=== PATIENT | female | born 1940 | race Caucasian/White ===

== ENCOUNTER 2017-05-06 06:33 | Inpatient (IN) | payer OTHER ==
[2017-05-06 06:41] VITALS: RESP 16
--- NOTE | 2017-05-06 07:03 | EDPHY ---
H & P Stated Complaint: Recent fall, difficulty managing symptoms at home Time Seen by Provider: 05/06/17 06:51 HPI/ROS: CHIEF COMPLAINT: Mechanical fall on Monday, multiple injuries, difficulty managing at home HISTORY OF PRESENT ILLNESS: The patient presents to the ED after reportedly had a mechanical fall on Monday. She was diagnosed with a sugar in her back, acute knee strain and a left foot fracture. She has been unable to ambulate safely with the cast boot she was given. The patient was also given a prescription for Toradol. She reports this given her terrible nightmares. She has been unable to sleep. While her daughter does live at the house where she works during the day and is unable to safely care for her mother during those times. REVIEW OF SYSTEMS: A comprehensive 10 point review of systems is otherwise negative aside from elements mentioned in the history of present illness. Source: Patient Exam Limitations: No limitations - Personal History Current Tetanus/Diphtheria Vaccine: Yes Current Tetanus Diphtheria and Acellular Pertussis (TDAP): Yes Tetanus Vaccine Date: 2009 - Medical/Surgical History Hx Asthma: No Hx Chronic Respiratory Disease: No Hx Diabetes: No Hx Cardiac Disease: Yes Hx Renal Disease: No Hx Cirrhosis: No Hx Alcoholism: No Hx HIV/AIDS: No Hx Splenectomy or Spleen Trauma: No Other PMH: A- FIB, PACEMAKER, CHF, TURNERS SYNDROM - Social History Smoking Status: Former smoker - Physical Exam Exam: General Appearance: Elderly female, no acute distress Head: Atraumatic Eyes: Pupils equal, round, reactive ENT, Mouth: No hemotympanum, no oral trauma Neck: Nontender, trachea midline Respiratory: Mild tenderness to palpation left anterior chest wall, no subcutaneous emphysema Cardiovascular: Regular rate and rhythm Abdomen: Abdomen is soft and nontender, pelvis stable Skin: No lacerations, No abrasion Back: Tenderness to palpation lower lumbar spine Extremities: Tenderness to palpation lateral at night, decreased range of motion right knee Neurological: GCS 15, 5/5 strength all 4 extremities Constitutional: Initial Vital Signs Temperature (C) 36.8 C 05/06/17 06:37 Heart Rate 84 05/06/17 06:37 Respiratory Rate 16 05/06/17 06:37 Blood Pressure 100/74 05/06/17 06:37 O2 Sat (%) 96 05/06/17 06:37 O2 Delivery Mode Room Air O2 (L/minute) 2 Allergies/Adverse Reactions: Sulfa (Sulfonamide Antibiotics) Allergy (Intermediate, Verified 05/06/17 06:42) Hives trimethoprim [Trimethoprim] Allergy (Intermediate, Verified 05/06/17 06:42) Hives Home Medications: Medication Instructions Recorded Aspirin [Aspirin 81mg (*)] 81 mg PO DAILY 12/26/13 Cholecalciferol Vit D3 [Vitamin D3 4,000 units PO DAILY 12/26/13 (*)] Escitalopram Oxalate [Lexapro 10 10 mg PO HS 12/26/13 MG] Sotalol HCl [Sotalol] 180 mg PO BID 12/26/13 Bimatoprost 0.01% [Lumigan 0.01% 1 drops EACHEYE HS 11/11/14 (*)] Herbals/Supplements -Info Only 1 ea PO DAILY 11/11/14 Meclizine HCl [Meclizine HCl 25 mg 25 mg PO DAILY PRN 11/11/14 (RX,OTC)] Ibuprofen [Motrin (*)] 600 mg PO Q6 PRN #0 tab 11/27/14 Furosemide [Lasix 20 MG (*)] 20 mg PO 05/06/17 Home O2 2 05/06/17 Tramadol HCl 50 mg PO 05/06/17 Warfarin Sodium 4 mg PO 05/06/17 Medical Decision Making - Diagnostics EKG Interpretation: EKG: Complete interpretation has been separately recorded in the [facility] archive. Summary impression: Atrial fibrillation with chronic conduction changes ED Course/Re-evaluation: The patient presents to the ED with increasing inability to care for herself in the setting of recent orthopedic injuries. The patient has a history of arrhythmia. 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 Patient has no complaints of an acute headache or neck pain in the emergency department. The patient does have tenderness in the area she reports she was diagnosed with injuries on Monday. Patient was noted to be hemodynamically stable in the emergency department. Patient will require admission to the hospital for likely placement into a rehab facility. Consultation is made with the hospitalist service. She will be a by Dr. Butch Roldan. I did review the [facility] EHR and reviewed the following which reports from [facility] earlier this week. Chest x-ray PA lateral: Negative for pneumothorax or rib fracture Four view right knee series: Negative for acute fracture Left foot x-ray: Nondisplaced 5th metatarsal fracture Rib x-ray series: Negative for acute fracture I see no record of lumbar plain film being ordered and have ordered one. Differential Diagnosis: Differential diagnosis considered includes fracture, sprain dislocation, metabolic abnormality, arrhythmia - Data Points Laboratory Results: Laboratory Results 05/06/17 07:30 05/06/17 07:30 05/06/17 05/06/17 07:30 07:30 WBC 8.30 10^3/uL 10^3/uL (3.80-9.50) RBC 3.54 10^6/uL L 10^6/uL (4.18-5.33) Hgb 9.6 g/dL L g/dL (12.6-16.3) Hct 30.6 % L % (38.0-47.0) MCV 86.4 fL fL (81.5-99.8) MCH 27.1 pg L pg (27.9-34.1) MCHC 31.4 g/dL L g/dL (32.4-36.7) RDW 19.7 % H % (11.5-15.2) Plt Count 265 10^3/uL 10^3/uL (150-400) MPV 12.1 fL H fL (8.7-11.7) Neut % (Auto) 38.1 % L % (39.3-74.2) Lymph % (Auto) 57.0 % H % (15.0-45.0) [place] % (Auto) 3.4 % L % (4.5-13.0) Eos % (Auto) 0.7 % % (0.6-7.6) Baso % (Auto) 0.6 % % (0.3-1.7) Nucleat RBC Rel Count 0.0 % % (0.0-0.2) Absolute Neuts (auto) 3.16 10^3/uL 10^3/uL (1.70-6.50) Absolute Lymphs (auto) 4.73 10^3/uL H 10^3/uL (1.00-3.00) Absolute Monos (auto) 0.28 10^3/uL L 10^3/uL (0.30-0.80) Absolute Eos (auto) 0.06 10^3/uL 10^3/uL (0.03-0.40) Absolute Basos (auto) 0.05 10^3/uL 10^3/uL (0.02-0.10) Absolute Nucleated RBC 0.00 10^3/uL 10^3/uL (0-0.01) Immature Gran % 0.2 % % (0.0-1.1) Seg Neutrophils % 46 % % Band Neutrophils % 3 % % Lymphocytes % 50 % % Eosinophils % 1 % % Immature Gran # 0.02 10^3/uL 10^3/uL (0.00-0.10) Absolute Seg Neuts 3.82 10^/uL 10^/uL (1.70-6.50) Absolute Band Neuts 0.25 10^3/uL 10^3/uL (0.00-0.70) Absolute Lymphocytes 4.15 10^3/uL H 10^3/uL (1.00-3.00) Absolute Eosinophils 0.08 10^3/uL 10^3/uL (0.03-0.40) Differential Comment COMM Smudge Cells 2+ H Platelet Estimate ADEQUATE (ADEQ) Echinocytes 1+ H Elliptocytes 2+ H Acanthocytes (Spur) 1+ H Smear Review By Pending Sodium 144 mEq/L mEq/L (135-145) Potassium 4.2 mEq/L mEq/L (3.5-5.2) Chloride 103 mEq/L mEq/L (97-110) Carbon Dioxide 33 mEq/l H mEq/l (22-31) Anion Gap 8 mEq/L mEq/L (8-16) BUN 22 mg/dL mg/dL (7-23) Creatinine 0.5 mg/dL L mg/dL (0.6-1.0) Estimated GFR > 60 Glucose 88 mg/dL mg/dL (70-100) Calcium 9.0 mg/dL mg/dL (8.5-10.4) Departure - Departure Disposition: [facility] Inpatient Acute Clinical Impression: Atrial fibrillation Qualifiers: Atrial fibrillation type: chronic Qualified Code(s): I48.2 - Chronic atrial fibrillation Knee strain Qualifiers: Encounter type: initial encounter Laterality: right Qualified Code(s): S86.911A - Strain of unspecified muscle(s) and tendon(s) at lower leg level, right leg, initial encounter Metatarsal fracture Qualifiers: Encounter type: initial encounter Metatarsal bone: fifth Fracture type: closed Fracture alignment: nondisplaced Laterality: left Qualified Code(s): S92.355A - Nondisplaced fracture of fifth metatarsal bone, left foot, initial encounter for closed fracture Condition: Good
--- NOTE | 2017-05-06 07:27 | CPEKG ---
Heart Rate: 95 RR Interval: 632 QRSD Interval: 108 QT Interval: 420 QTC Interval: 528 QRS [place]: 103 T Wave [place]: 101 EKG Severity - ABNORMAL ECG - EKG Impression: A-FLUTTER W/ PREDOM 3:1 AV BLOCK, A-RATE 263 EKG Impression: VENTRICULAR PREMATURE COMPLEX EKG Impression: IRBBB AND LPFB Electronically Signed By: Heron Mars 06-May-2017 08:33:38
[2017-05-06 07:38] LABS: PLATELET COUNT 265 10^3/uL (150-400)
[2017-05-06] MEDS ORDERED: FUROSEMIDE 20 MG TAB PO PRN (12:06)
[2017-05-06] MEDS ORDERED: ACETAMINOPHEN 325 MG TAB PO PRN (12:16)
[2017-05-06] MEDS ORDERED: ONDANSETRON DISINTEGRATING 4 MG TAB PO PRN (12:16)
[2017-05-06] MEDS ORDERED: ONDANSETRON 4 MG/2 ML VIAL IVP PRN (12:16)
--- NOTE | 2017-05-06 12:56 | GHP ---
[f rep st] HISTORY AND PHYSICAL DATE OF ADMISSION: 05/06/2017 HISTORY OF PRESENT ILLNESS: The patient is a pleasant 77-year-old female with history of poor balanc e, Louise syndrome, atrial fibrillation, on chronic warfarin therapy who presents several days after a fall. She had a mechanical fall on Monday where she tripped on a curb. She landed on her foot and side breaking a rib. She also broke a bone in her foot, although I do not have the films to review. She was given a hard walking cast and tramadol for pain relief, and has done poorly a week. She is having nightmares from the pain from the tramadol and she is functionally doing poorly at home. She lives with her daughter who is available, but during the day, the daughter works. The patient has been largely confined to bed. She has not had fever. She has not had chills. She h as not had cough. No nausea, vomiting, diarrhea. We spent a moment discussing the risks and benefits of a patient who takes Coumadin and falls. It so unds like she has been on Coumadin for 20 years with no major bleeding episodes and does have somewha t recurrent falls. Her maintenance fitter is Dr. Huffman. REVIEW OF SYSTEMS: Complete 10-point review of systems conducted and is negative as noted in the HPI . PAST MEDICAL HISTORY: 1. Osteoporosis. 2. Atrial fibrillation, on sotalol on warfarin. 3. Falls. 4. Fractures. 5. History of cystocele. 6. Depression. 7. Louise syndrome. ALLERGIES: Sulfa. HOME MEDICATIONS: Tramadol, aspirin, atorvastatin, Lumigan eyedrops, vitamin D3, escitalopram, Lasix , sotalol, warfarin. SOCIAL HISTORY: Lives with her daughter. No tobacco. No alcohol. FAMILY HISTORY: Daughter is alive and healthy. PHYSICAL EXAMINATION: VITAL SIGNS: Temp 36.6 blood pressure 105/46, pulse 87, breathing 16 times a minute, 95% on room. GENERAL: In no acute distress. HEENT: Sclerae anicteric. Oropharynx clear. Mucous membranes moist. NECK: Supple. No lymphadenopathy or JVD. LUNGS: Clear to auscultation b ilaterally. HEART: S1, S2. ABDOMEN: Soft, nontender, nondistended. LOWER EXTREMITIES: Without e patricia. Calves are nontender. SKIN: Without rash. NEUROLOGIC: Exam is nonfocal. LABORATORY/IMAGING: White count 8.3, hematocrit 30.6, which is her baseline, platelets 265,000. Sod ium 144, potassium 4.2, chloride 103, bicarb 33, BUN 22, creatinine 0.5, glucose 88. She has an elev ated CO2 in the past. Low back film. Lumbar spine films reviewed, interpreted by me shows multiple compression fractures T 12-L4, all of her moderate or lower. There is no retropulsion of fragments. She has dextroscoliosis of the upper lumbar spine. EKG interpreted by me shows atrial fibrillation at 95 with left axis deviation. There is T-wave inve rsion in V2. There is no prior for comparison. I have discussed the case with Dr. Goyo Mars of the Emergency Department. ASSESSMENT/PLAN: A 77-year-old female with mechanical fall, doing poorly at home. 1. Mechanical fall. The patient needs physical therapy, occupational therapy, and strengthening exe rcises. I have apprehension about Coumadin, but cannot deny her record of no major bleeding events. Her CHADS2-VASc is probably at least 2. 2. Lumbar fractures. She has multiple lumbar compression fractures. She is in back pain and wonder s if she is a candidate for kyphoplasty. She has had in the past. I will ask Neurosurgery to see he r to evaluate. She does not have neurologic symptoms. 3. Pain. She did poorly with Ultram. I will try scheduled Tylenol with p.r.n. ibuprofen at a very low dose. 4. Anemia. It is a normocytic anemia that is chronic. We will follow. 5. Abnormal EKG. The patient has no active cardiac complaints, no chest pain. We will follow. The re is no indication for telemetry. 6. Prophylaxis. Therapeutically anticoagulated. Follow INR daily. 7. Atrial fibrillation. She is on sotalol, which is presumably for rhythm control, they be acting a s a rate control agent in her. We will continue that her warfarin. 8. Metabolic alkalosis. I suspect this is chronic respiratory acidosis with metabolic compensation given her abnormal thoracic cage from her Louise syndrome. /[id number]/MODL
[2017-05-06] MEDS: ASPIRIN 81 MG CHEWABLE TAB PO SCH (12:57)
[2017-05-06] MEDS: ACETAMINOPHEN 500 MG TAB PO SCH ×2 (12:58→20:50)
--- NOTE | 2017-05-06 13:51 | PDMN ---
Medical Necessity Medical necessity: C/M review: est. > 2 MN LOS for eval and TX of acute and persistent generalized weakness, poor balance, patient had been largely confined to bed, requiring max assist with ADLs, patient doing poorly functionally at home, multiple lumbar fractures T112-L4 on xray, back pain, abnormal EKG, metabolic alkalosis, requiring planned Neurosurgery consult, ongoing pain management - scheduled oral Tylenol and oral ibuprofen as needed, acute inpt PT/OT, strengthening exercizes, comorbid mechanical fall at home with rib fracture, left foot bone fracture- was seen in ED, given left foot hard walking case and oral Tramadol several days prior to this admission, patient had nightmares with Tramadol, anemia, atrial fibrillation on chronic oral Sotalol and Warfarin, history of Louise syndrome, osteoporosis, falls, depression, cystocele per H/P.
--- NOTE | 2017-05-06 14:17 | GCON ---
[f rep st] CONSULTATION NEUROSURGERY CONSULTATION CHIEF COMPLAINT: Back pain, compression fractures. HPI: The patient is a 77-year-old female patient with a history of poor balance , Louise syndrome, atrial fibrillation, on Coumadin therapy, who presented after a fall last week. She had a mechanical fall on Monday where she tripped on a curb. She landed on her foot inside and broke her rib. She also apparently broke a bone in her foot. She was given a hard walking cast and tramadol for pain, and overall had done poorly. She did not tolerate the tramadol, was having nightmares. She presented to the hospital for further treatment. The patient was admitted to the hospitalist service. She has also complained of some right-sided thoracic back pain, and has a history of prior multiple compression fractures. She underwent x-ray of the thoracic spine, which demonstrated multiple age-indeterminate fractures, and the neurosurgery service was subsequently consulted for further evaluation and management. Currently, the patient is resting in bed. She states that she does have a lot of rib pain. She states she has had a lot of fractures over the years from her Louise syndrome. She states that the pain is worse in her upper thoracic spine to the right side. She denies any nausea, vomiting, new numbness or weakness. No tingling. REVIEW OF SYSTEMS: Please see the above mentioned in the HPI. PAST MEDICAL HISTORY: Louise syndrome, osteoporosis, atrial fibrillation, history of falls and fractures, history of cystocele, depression. ALLERGIES: Sulfa. MEDICATIONS: Tramadol, aspirin, atorvastatin, Lumigan eye drops, vitamin D3, escitalopram, Lasix, sotalol, and warfarin. SOCIAL HISTORY: The patient lives with her daughter. She is a retired [employer]. 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 She does not use tobacco or alcohol. FAMILY HISTORY: The patient's daughter is alive and healthy. PHYSICAL EXAMINATION: VITAL SIGNS: Blood pressure 105/46, heart rate 87, respirations 16, O2 saturation is 95% on 2 L of oxygen via nasal cannula, temperature is 36.6 Celsius. GENERAL: Well-developed, well-nourished, elderly female patient in no acute distress. HEAD: Normocephalic and atraumatic. NEURO: Cranial nerves 2-12 are grossly intact. The patient is mildly tender over the thoracic spine, more tender in the paraspinal musculature to the right side of the thoracic spine. Motor exam shows bilateral extremities are 5/5 for hip flexion, flexion and extension of the knee, and plantar and dorsiflexion. LABORATORY: White blood cells 8.30, red blood cells 3.54, hemoglobin 9.6, hematocrit 30.6, platelet count 265, sodium is 144, potassium 4.2, chloride 103 , carbon dioxide 33, anion gap 8, BUN 22, creatinine 0.5, GFR greater than 60, glucose 88, calcium 9.0. IMAGING: Lumbar spine x-ray: Compression fractures from T12 through L4 as detailed above. The age of these fractures is indeterminate. Consider DEXA scan at some point to evaluate underlying bone mineral density. Moderate dextroscoliosis of the upper lumbar spine. ASSESSMENT: This is a 77-year-old female patient with some right-sided thoracic back pain, and age-indeterminate fractures at multiple levels in her thoracic spine. She is neurologically intact. PLAN: Dr. Pratt and I saw the patient together this afternoon at approximately 1:30 p.m. She is not profoundly tender over her thoracic spine. She is not able to have an MRI to evaluate the chronicity of her fractures given her pacemaker. We will plan to have the patient undergo a CT of the thoracic spine to try and better evaluate these fractures. We will to avoid surgery for her if possible, although she has had kyphoplasties in the past. She is moving pretty well in the bed, and although she does have pain, she seems pretty functional. She has a kyphotic posture, and likely would not tolerate a Jimmy brace. She may or may not tolerate a backpack style brace. Once we have evaluated her CT scan, we will determine further treatment options for this patient. Neurosurgery will continue to follow along. Please contact our office with any additional questions or concerns. /[id number]/MODL MTDD
--- NOTE | 2017-05-06 16:28 | ASMTCMCOM ---
CM Note CM Note Notes: Chart review for d/c planning purposes. 77 y/o female presented via ED after falling last Monday, foot, rib and multiple lumbar compression fractures. History of chronic A-fib and chronic anticoagulation. PT and OT ordered. PT recommending SNF. Discharge date TBD, CM available to follow and address discharge needs. CM d/c plan: Possible SNF, TBD. Date Signed: 05/06/2017 04:27 PM Electronically Signed By:Kira Rader
--- NOTE | 2017-05-06 18:18 | NEUSURGPN ---
Assessment/Plan: CT T spine reviewed - report mentions both pleural effusion and pericardial effusion - not sure which is accurate?. Spoke with pt's RN Kassy and asked her to please notify hospitalists. Will re-check pt tomorrow. Fractures are likely chronic and given pt's kyphosis and prominent sternum she is unlikely to tolerate bracing. Will likely just recommend therapies and pain control. Please call NS with any questions/concerns. Neurosurgery Physical Exam - Vitals, I&O, Labs I and O 05/05/17 05/06/17 05/07/17 05:59 05:59 06:59 Weight 53.977 kg Other: Number of Voids Toilet 1 Vital Signs Temp Pulse Resp BP Pulse Ox 36.8 C 82 16 92/58 L 95 05/06/17 15:27 05/06/17 15:27 05/06/17 15:27 05/06/17 15:27 05/06/17 15:27 ICD10 Worksheet Patient Problems: Problems Problem Status Onset Atrial fibrillation Acute Knee strain Acute Metatarsal fracture Acute Anemia, chronic disease Acute Complete uterovaginal prolapse Acute Radius distal fracture Acute
[2017-05-06] MEDS: ESCITALOPRAM OXALATE 10 MG TAB PO SCH (20:19)
[2017-05-06] MEDS: SOTALOL HCL 80 MG TAB PO SCH (20:20)
[2017-05-06] MEDS ORDERED: WARFARIN SODIUM 4 MG TAB PO SCH (21:00)
[2017-05-06] MEDS: BIMATOPROST 0.01% 2.5 ML OPHT.BTL EACHEYE SCH (21:36)
[2017-05-06] MEDS: IBUPROFEN 200 MG TAB PO PRN (22:43)
[2017-05-07] MEDS: ACETAMINOPHEN 500 MG TAB PO SCH ×3 (04:59→21:31)
[2017-05-07 05:23] LABS: INR 3.27 (0.83-1.16); PROTIME(PATIENT) 33.1 SEC (12.0-15.0)
--- NOTE | 2017-05-07 08:32 | NEUSURGPN ---
Assessment/Plan: 77 yo F s/p fall with back/rib/ankle pain Plan: -Underwent T spine CT which shows multiple age indeterminate fx. She is neuro intact and nontender to palpation over spinous processes. She localizes her pain to the right side of her spine around T6. Suspect this is likely muscular -Will add muscle relaxant low dose to see if this helps her pain -No brace recommended -NS will sign off and follow peripherally, she should follow up PRN -Pt understands plan -D/w Dr Pratt -Please call NS with any questions/concerns Subjective: Pt resting in bed, states she has no pain right now because she hasn't moved Objective: AAOx3 NAD VSS MAEx4 Motor 5/5 BLE +LT Urinary Catheter in Place: No - Physician Discussed Patient with : [facility] Physical Exam - Vitals, I&O, Labs I and O 05/06/17 05/07/17 05/08/17 04:59 05:59 05:59 Intake Total Balance Weight Intake: Oral (ml) Other: Intake Quantity Sufficient Number of Voids Toilet Vital Signs Temp Pulse Resp BP Pulse Ox 36.4 C 79 16 98/55 L 92 05/06/17 22:46 05/06/17 22:46 05/06/17 22:46 05/06/17 22:46 05/06/17 22:46 ICD10 Worksheet Patient Problems: Problems Problem Status Onset Atrial fibrillation Acute Knee strain Acute Metatarsal fracture Acute Anemia, chronic disease Acute Complete uterovaginal prolapse Acute Radius distal fracture Acute
[2017-05-07] MEDS: CHOLECALCIFEROL VIT D3 2,000 UNITS TAB/CAP PO SCH (09:29)
[2017-05-07] MEDS: ATORVASTATIN CALCIUM 10 MG TAB PO SCH (09:29)
[2017-05-07] MEDS: ASPIRIN 81 MG CHEWABLE TAB PO SCH (09:29)
[2017-05-07] MEDS: SOTALOL HCL 80 MG TAB PO SCH ×2 (09:30→21:33)
--- NOTE | 2017-05-07 12:30 | HOSPPROG ---
Hospitalist Progress Note Assessment/Plan: 77 yo F w fall falls: needs pt and OT and likely snf compression fx: age indet per CT appreciate neurosurgeryinput AF: on warfarin falls noted she has been falling whilst on warfarin for more that 20 years without major bleeding event pain: scheduled tylenol proph: anticoagulated Subjective: case d/w neurosurgery PA Objective: Vital Signs Temp Pulse Resp BP Pulse Ox 36.4 C 80 16 90/54 L 93 05/07/17 08:00 05/07/17 08:00 05/07/17 08:00 05/07/17 08:00 05/07/17 08:00 05/06/17 05/07/17 05/08/17 04:59 05:59 05:59 Intake Total Balance PT 33.1 SEC (12.0-15.0) H 05/07/17 04:42 INR 3.27 (0.83-1.16) H 05/07/17 04:42 - Physical Exam Constitutional: no apparent distress, appears nourished Ears, Nose, Mouth, Throat: moist mucous membranes, hearing normal Cardiovascular: regular rate and rhythym, no murmur, rub, or gallop Respiratory: no respiratory distress, no rales or rhonchi Gastrointestinal: normoactive bowel sounds, soft, non-tender abdomen Genitourinary: no bladder fullness Skin: warm, normal color Musculoskeletal: full muscle strength, no muscle tenderness Neurologic: AAOx3 ICD10 Worksheet Patient Problems: Problems Problem Status Onset Atrial fibrillation Acute Knee strain Acute Metatarsal fracture Acute Anemia, chronic disease Acute Complete uterovaginal prolapse Acute Radius distal fracture Acute
--- NOTE | 2017-05-07 18:01 | ASMTCMCOM ---
CM Note CM Note Notes: Pt has chosen to go to a SNF at [place] and is requesting a referral be sent to [facility] b/c that is where her went. Referral faxed. PASRR completed. CM to follow. Date Signed: 05/07/2017 12:41 PM Electronically Signed By:Angie Arellano LCSW
--- NOTE | 2017-05-07 18:01 | ASMTCMCOM ---
CM Note CM Note Notes: Previous CM note was for a different pt. Pt admitted after mechanical fall at home on Monday. Per H&P she is doing poorly at home. OT has recommended SNF. PT has no evlauated pt yet. Pt's dtr unavailable. CM will continue to follow for DC needs. Date Signed: 05/07/2017 11:08 AM Electronically Signed By:Angie Arellano LCSW
--- NOTE | 2017-05-07 18:01 | ASMTCMCOM ---
CM Note CM Note Notes: Discussed pt's needs with RN. [facility]icip[facility] francisco will have no DC needs. CM available if needs change. Date Signed: 05/07/2017 10:56 AM Electronically Signed By:Angie Arellano LCSW
[2017-05-07] MEDS: IBUPROFEN 200 MG TAB PO PRN ×2 (18:56→22:29)
[2017-05-07] MEDS: BIMATOPROST 0.01% 2.5 ML OPHT.BTL EACHEYE SCH (21:30)
[2017-05-07] MEDS: ESCITALOPRAM OXALATE 10 MG TAB PO SCH (21:33)
[2017-05-08 05:12] LABS: INR 3.22 (0.83-1.16); PROTIME(PATIENT) 32.7 SEC (12.0-15.0)
[2017-05-08] MEDS: ACETAMINOPHEN 500 MG TAB PO SCH (07:45)
[2017-05-08] MEDS: SOTALOL HCL 80 MG TAB PO SCH ×2 (08:33→20:19)
[2017-05-08] MEDS: ASPIRIN 81 MG CHEWABLE TAB PO SCH (08:34)
[2017-05-08] MEDS: ATORVASTATIN CALCIUM 10 MG TAB PO SCH (08:34)
[2017-05-08] MEDS: CHOLECALCIFEROL VIT D3 2,000 UNITS TAB/CAP PO SCH (08:35)
[2017-05-08] MEDS: IBUPROFEN 200 MG TAB PO PRN (12:06)
--- NOTE | 2017-05-08 12:46 | ASMTCMCOM ---
CM Note CM Note Notes: PT now recommending home w/HHC. Pt lives at home w/supportive daughter. Met w/pt and dtr. Pt is agreeable to [facility] (PT/OT), would like to use [facility]; referral sent to this agency. Pt says she has very good support network and lives with daughter and feels good about going home. Homebound policy discussed and address confirmed for HHC. Daughter is having be delivered to house on Monday so that pt can stay on one level in home. CM will follow. Date Signed: 05/08/2017 12:45 PM Electronically Signed By:Anastacia Garcia RN
--- NOTE | 2017-05-08 13:51 | HOSPPROG ---
Hospitalist Progress Note Assessment/Plan: * Left foot non-displaced 5th metatarsal fx -repeat Xray negative * Falls -PT/OT * Compression fractures - suspect chronic * Back pain -suspect muscular per neurosurg * Afib -sotalol, warfarin * Louise's syndrome * Possible rib fracture -check Xray Subjective: Still with severe rib pain with deep inspiration. Left foot pain. Objective: Vital Signs Temp Pulse Resp BP Pulse Ox 36.4 C 93 16 113/64 97 05/08/17 08:00 05/08/17 08:33 05/08/17 08:00 05/08/17 08:33 05/08/17 08:00 05/07/17 05/08/17 05/09/17 05:59 05:59 05:59 Intake Total 1860 Output Total 400 Balance 1460 PT 32.7 SEC (12.0-15.0) H 05/08/17 04:20 INR 3.22 (0.83-1.16) H 05/08/17 04:20 Old chart review - previous Xrays all done at [facility], last hospitalization here 2014 CT thoracic - old compression fractures EKG viewed, my personal interpretation is - ant TWI - Physical Exam Constitutional: no apparent distress, appears nourished, not in pain Cardiovascular: regular rate and rhythym, no murmur, rub, or gallop Respiratory: no respiratory distress, no rales or rhonchi, clear to auscultation Gastrointestinal: normoactive bowel sounds, soft, non-tender abdomen, no palpable masses Skin: no rashes or abrasions, no fluctuance, no induration Neurologic: AAOx3, sensation intact bilaterally Psychiatric: interacting appropriately, not anxious, not encephalopathic, thought process linear ICD10 Worksheet Patient Problems: Problems Problem Status Onset Atrial fibrillation Acute Knee strain Acute Metatarsal fracture Acute Anemia, chronic disease Acute Complete uterovaginal prolapse Acute Radius distal fracture Acute
[2017-05-08] MEDS ORDERED: ACETAMINOPHEN 500 MG TAB PO PRN (13:54)
[2017-05-08] MEDS: ESCITALOPRAM OXALATE 10 MG TAB PO SCH (20:19)
[2017-05-08] MEDS: BIMATOPROST 0.01% 2.5 ML OPHT.BTL EACHEYE SCH (20:22)
[2017-05-09] MEDS: IBUPROFEN 200 MG TAB PO PRN (04:16)
[2017-05-09 05:00] LABS: PLATELET COUNT 241 10^3/uL (150-400)
[2017-05-09 05:06] LABS: INR 2.58 (0.83-1.16); PROTIME(PATIENT) 27.6 SEC (12.0-15.0)
[2017-05-09 07:52] VITALS: TEMP 97.8
[2017-05-09] MEDS: ATORVASTATIN CALCIUM 10 MG TAB PO SCH (08:28)
[2017-05-09] MEDS: ASPIRIN 81 MG CHEWABLE TAB PO SCH (08:28)
[2017-05-09] MEDS: CHOLECALCIFEROL VIT D3 2,000 UNITS TAB/CAP PO SCH (08:28)
--- NOTE | 2017-05-09 10:11 | PDIAF ---
- Diagnosis Diagnosis: vertebral compression fracture Code Status: Full Code - Medication Management Discharge Medications: Medications to Continue on Transfer Aspirin [Aspirin 81mg (*)] 81 mg PO DAILY 12/26/13 [Last Taken 05/05/17] Cholecalciferol Vit D3 [Vitamin D3 (*)] 4,000 units PO DAILY 12/26/13 [Last Taken 05/05/17] Escitalopram Oxalate [Lexapro 10 MG] 10 mg PO HS 12/26/13 [Last Taken 05/05/17] Bimatoprost 0.01% [Lumigan 0.01% (*)] 1 drops EACHEYE HS 11/11/14 [Last Taken ] Atorvastatin Calcium [Lipitor 10 mg (*)] 10 mg PO SUTUTHFRSA@0900 05/06/17 [ Last Taken 05/05/17] Furosemide [Lasix 20 MG (*)] 20 mg PO DAILY PRN 05/06/17 [Last Taken 05/04/17] Sotalol HCl [SOTALOL] 120 mg PO BID 05/06/17 [Last Taken 05/05/17] Tramadol HCl 25 mg PO Q6 PRN 05/06/17 [Last Taken Unknown] Warfarin Sodium 4 mg PO HS 05/06/17 [Last Taken 05/05/17] Discharge Medications: Refer to the Discharge Home Medication list for PRN reason. - Orders Services needed: Home Care, Physical Therapy, Occupational Therapy Home Care Face to Face: I certify that this patient was under my care and that I had the required [id number] encounter meeting the encounter requirements on the discharge day. My findings support the fact that the patient is homebound as defined in Home Care Face to Face Continued: CMS Chapter 7 Medicare Benefits Manual 30.1.1 , The condition of the patient is such that there exists a normal inability to leave home and consequently, leaving home would require a considerable and taxing effort. Isolation Type: None Diet Recommendation: no restrictions on diet Diet Texture: Regular Texture Diet - Follow Up Care Current Providers and Referrals: Alex Mooney MD [Primary Care Provider] - As per Instructions
--- NOTE | 2017-05-09 10:55 | GDS ---
[f rep st] DISCHARGE SUMMARY DISCHARGE DIAGNOSIS: 1. Left foot nondisplaced 5th metatarsal fracture. 2. Falls. 3. Compression fracture, likely chronic. 4. Atrial fibrillation. 5. History of Louise syndrome. 6. Possible rib fracture. CONSULTANTS: Ayleen Pino PA-C, Neurosurgery. HOSPITAL COURSE AND STAY: 1. Falls and pain: This patient was admitted hospital on 05/06/2017 with falls and pain. She was d iagnosed with chronic lumbar fractures. I suspected that she had a rib fracture. However, this was not seen on chest x-ray. She has been treated with Ultram and Tylenol with some relief. On day of d ischarge, she states she is feeling better and plans to discharge with home care. 2. History of atrial fibrillation on sotalol and warfarin: The patient has remained therapeutic on warfarin. She has been hypotensive throughout the stay. However, she is asymptomatic and this appear s to be chronic for her. 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 PHYSICAL EXAMINATION ON DAY OF DISCHARGE: VITAL SIGNS: Blood pressure 96/56, pulse of 99, respirato ry rate 16, O2 saturation 92% on 2 L. Temperature afebrile. GENERAL: No acute distress. HEART: S1 , S2. LUNGS: Lungs are clear. PERTINENT LAB AND STUDIES DONE THIS HOSPITAL STAY: Thoracic spine CT done 05/06/2017, refer to simi t. Chest x-ray done 05/08/2017, refer to report. DISCHARGE MEDICATIONS: Please refer to discharge medication reconciliation in [facility] for details. DISCHARGE INSTRUCTIONS: The patient will be discharged home with home care. She should follow up wi th her primary care provider next week for routine monitoring of her INR and outpatient followup. adrian should also follow up with her law firm administrator, Dr. Huffman, regarding her atrial fibrillation. Copy requested to: PCP /[id number]/[id number]
[2017-05-09] MEDS ORDERED: NS 500 ML IV ONE (11:00)
[2017-05-09] MEDS: SOTALOL HCL 80 MG TAB PO SCH (12:54)
[2017-05-09 16:01] VITALS: BP 88/50; PULSE 96; O2SAT 82
== END 2017-05-09 16:25 | disposition home health service (06) | DRG 543 ==
LOC: EDUNIT# → F3N 09:56
PROVIDERS: ADMIT Internal Medicine; ATTEND Internal Medicine
DX: M84.48XA Pathological fracture, other site, initial encounter for fracture (principal); S22.31XA Fracture of one rib, right side, initial encounter for closed fracture; S92.355A Nondisplaced fracture of fifth metatarsal bone, left foot, initial encounter for closed fracture; W18.39XA Other fall on same level, initial encounter; I48.2 Chronic atrial fibrillation; Q96.9 Turner's syndrome, unspecified; D53.9 Nutritional anemia, unspecified; M81.0 Age-related osteoporosis without current pathological fracture; I50.9 Heart failure, unspecified; Z79.01 Long term (current) use of anticoagulants; Z95.0 Presence of cardiac pacemaker
CPT/HCPCS: 97110-GO; 97116-GP; 97161-GP; 97166-GO; 97530-GO; 97530-GP; 97535-GO; G0515-GO; G8978-GP-CJ; G8979-GP-CI; G8980-GP-CI; G8987-GO-CK; G8988-GO-CI